=== PATIENT | female | born 1970 | race African-American/Black ===

== ENCOUNTER 2022-09-07 00:29 | Emergency (ER) | payer BC, OTHER ==
[~2022-09-07] VITALS: Ht 162.6 cm; Wt 68.0 kg
--- NOTE | 2022-09-07 00:46 | NUR ---
BIBFRIEND FROM HOME C/O LEFT ANKLE SWELLING, BI KNEE ABRASIONS, RIGHT GREAT TOE PAIN P/S 11/14 S/P FALL AFTER MISSING A STEP, DENIES HITTING HEAD
--- NOTE | 2022-09-07 00:53 | NUR ---
DR. QUINTANA AT BEDSIDE
[2022-09-07] MEDS ORDERED: ACETAMINOPHEN ES 500 MG TABLET ONE (00:59)
[2022-09-07] MEDS ORDERED: IBUPROFEN 600 MG TABLET ONE (00:59)
[2022-09-07] MEDS ORDERED: ACETAMINOPHEN ES 500 MG TABLET PO ONE (01:00)
[2022-09-07] MEDS ORDERED: IBUPROFEN 600 MG TABLET PO ONE (01:00)
--- NOTE | 2022-09-07 01:02 | NUR ---
ADVANCED MANUFACTURING ENGINEER AT PT'S BEDSIDE
--- NOTE | 2022-09-07 01:41 | NUR ---
INDUSTRIAL DIAMOND POLISHER AT PT'S BEDSIDE
--- NOTE | 2022-09-07 04:22 | NUR ---
Patient discharged to home in stable condition. Written and verbal after care instructions given. Patient verbalizes understanding of instruction.IV removed. Catheter intact and site benign. Pressure and 4x4 applied to site. No bleeding noted.
[2022-09-07 04:23] VITALS: BP 101/69
== END 2022-09-07 04:41 | disposition home or self-care (01) ==
LOC: ER 00:44
DX: S93.402A Sprain of unspecified ligament of left ankle, initial encounter (principal); S80.01XA Contusion of right knee, initial encounter; W10.9XXA Fall (on) (from) unspecified stairs and steps, initial encounter; Y93.89 Activity, other specified; Y92.89 Other specified places as the place of occurrence of the external cause; Y99.8 Other external cause status
CPT/HCPCS: 73564-TC; 73610-TC; 73630-TC